=== PATIENT | male | born 1985 | race Caucasian/White ===

== ENCOUNTER 2024-05-21 12:36 | Emergency (ER) | payer SELFPAY ==
[~2024-05-21] VITALS: Ht 165.1 cm; Wt 87.1 kg
[2024-05-21] MEDS ORDERED: AMOX-CLAV 875-1 EACH PO (12:58)
[2024-05-21] MEDS ORDERED: Amoxicillin/Clavulanate Pota 875 MG TAB PO ONE (13:00)
== END 2024-05-21 13:01 | disposition home or self-care (01) ==
LOC: ED 12:36
DX: J02.0 Streptococcal pharyngitis (principal); F17.210 Nicotine dependence, cigarettes, uncomplicated